=== PATIENT | female | born 2000 | race Caucasian/White ===

== ENCOUNTER → 2020-07-26 08:30 | Outpatient (CLI) | payer BC | END | disposition home or self-care (01) | LOC: LAB 08:30 | PROVIDERS: ATTEND Emergency Medicine Pediatric Emergency Medicine | DX: Z03.818 Encounter for observation for suspected exposure to other biological agents ruled out (principal) ==

== ENCOUNTER → 2020-08-07 07:54 | Outpatient (CLI) | payer BC | END | disposition home or self-care (01) | LOC: LAB 07:54 | PROVIDERS: ATTEND Emergency Medicine Pediatric Emergency Medicine | DX: Z03.818 Encounter for observation for suspected exposure to other biological agents ruled out (principal) ==